=== PATIENT | male | born 1950 | race Caucasian/White ===

== ENCOUNTER → 2021-06-24 | Outpatient (REF) | payer OTHER ==
[2021-06-24 14:09] LABS: APPEARANCE, URINE CLEAR (CLEAR); BACTERIA, URINE AUTO NEGATIVE (NEGATIVE); BILIRUBIN, URINE AUTO NEGATIVE (NEGATIVE); BLOOD, URINE BLOOD NEGATIVE (NEGATIVE); COLOR, URINE YELLOW (YELLOW); GLUCOSE, URINE (UA) AUTO NEGATIVE (NEGATIVE); KETONE, URINE AUTO TRACE mg/dL (NEGATIVE); LEUKOCYTE ESTERASE, URINE AUTO TRACE (NEGATIVE); MUCUS, URINE SMALL (NEGATIVE); NITRITE, URINE AUTO NEGATIVE (NEGATIVE); PROTEIN, URINE AUTO NEGATIVE (NEGATIVE); RBC, URINE AUTO 1 /HPF (0-3); SPECIFIC GRAVITY URINE AUTO 1.023 (1.002-1.035); SQUAMOUS EPITHELIAL CELL UR AU 0 /HPF (0-6); WBC, URINE AUTO 3 /HPF (0-3)
== END ==
LOC: M SMT 13:21
PROVIDERS: ATTEND Physician Assistant
DX: R97.20 Elevated prostate specific antigen [PSA] (principal); R30.0 Dysuria

== ENCOUNTER → 2023-03-14 | Outpatient (REF) | payer OTHER | LOC: M SFHCDERM 18:10 | PROVIDERS: ATTEND Nurse Practitioner Family | DX: L57.0 Actinic keratosis (principal); L57.8 Other skin changes due to chronic exposure to nonionizing radiation ==

== ENCOUNTER → 2023-06-14 | Outpatient (REF) | payer OTHER | LOC: M SFHCDERM 18:07 | PROVIDERS: ATTEND Physician Assistant | DX: C44.42 Squamous cell carcinoma of skin of scalp and neck (principal) ==

== ENCOUNTER → 2023-09-06 | Outpatient (REF) | payer OTHER | LOC: M SFHCDERM 15:45 → EEVIPCON 15:45 | PROVIDERS: ATTEND Dermatology | DX: L08.9 Local infection of the skin and subcutaneous tissue, unspecified (principal) ==

== ENCOUNTER → 2024-04-11 | Outpatient (REF) | payer OTHER | LOC: M SFHCDERM 18:06 | PROVIDERS: ATTEND Physician Assistant | DX: D48.9 Neoplasm of uncertain behavior, unspecified (principal) ==